=== PATIENT | female | born 1960 | race Asian ===

== ENCOUNTER 2023-11-06 20:11 | Emergency (ER) | payer OTHER ==
[~2023-11-06] VITALS: Ht 157.5 cm; Wt 49.9 kg
[~2023-11-06 20:11] MED LIST: ALOG1TAB6 PO; ATOR40TA PO; CHOL200072 PO; LUTE1CAP5 PO; METF-1274 PO; METO-485 PO; [UNRECOGNIZED DRUG - CODE] PO
[2023-11-06 20:24] VITALS: BP 122/75; PULSE 110; RESP 20; TEMP 97.8; O2SAT 95
[2023-11-06 21:10] LABS: BASOPHILS # (AUTO) 0.1 K/uL (0.00-0.22); EOSINOPHILS # (AUTO) 0.1 K/uL (0-0.4); EOSINOPHILS % (AUTO) 1.5 % (0.0-4.0); HEMATOCRIT 35.9 % (36-48); HEMOGLOBIN 11.9 g/dL (12.0-16.0); LYMPHOCYTES % (AUTO) 10.5 % (20.5-51.1); MEAN CORPUSCULAR HEMOGLOBIN 30 pg (27-31); MEAN CORPUSCULAR HGB CONC 33 g/dL (33-37); MEAN CORPUSCULAR VOLUME 90.7 fL (80-94); MONOCYTES # (AUTO) 0.8 K/uL (0.8-1.0); MONOCYTES % (AUTO) 8.4 % (1.7-9.3); NEUTROPHILS # (AUTO) 7.7 K/uL (1.8-7.7); NEUTROPHILS % (AUTO) 78.6 % (42.2-75.2); PLATELET COUNT (AUTO) 296 K/uL (140-450); RED BLOOD CELL COUNT(AUTO) 3.96 MIL/uL (4.20-5.40); RED CELL DISTRIBUTION WIDTH 14.5 % (11.6-13.7); WHITE BLOOD COUNT (AUTO) 9.8 K/uL (4.8-10.8)
[2023-11-06] MEDS: KETOROLAC 30 MG/ML VIAL IM ONE (21:11)
[2023-11-06 21:35] LABS: ANION GAP 11.3 (8-16); CALCIUM 9.2 mg/dL (8.5-10.1); CARBON DIOXIDE 28.5 mmol/L (21-32); CREATININE 1.3 mg/dL (0.6-1.3); POTASSIUM 3.8 mmol/L (3.5-5.1)
[2023-11-06 21:50] VITALS: PULSE 98; RESP 18; O2SAT 98
[2023-11-06 21:56] VITALS: O2SAT 100
[2023-11-06] MEDS: ALBUTEROL SULFATE/IPRATROPIU 3 ML SOL IH ONE (21:56)
[2023-11-07] MEDS ORDERED: IBUP-2213 PO (00:29)
[2023-11-07 00:54] VITALS: BP 101/57; PULSE 87; RESP 18; TEMP 98.1; O2SAT 97
== END 2023-11-07 00:54 | disposition home or self-care (01) ==
LOC: MED 20:11
DX: R07.89 Other chest pain (principal); R06.02 Shortness of breath; E11.9 Type 2 diabetes mellitus without complications; F03.90 Unspecified dementia, unspecified severity, without behavioral disturbance, psychotic disturbance, mood disturbance, and anxiety; F17.200 Nicotine dependence, unspecified, uncomplicated; Z71.6 Tobacco abuse counseling; Z79.899 Other long term (current) drug therapy; Z90.710 Acquired absence of both cervix and uterus; W01.198A Fall on same level from slipping, tripping and stumbling with subsequent striking against other object, initial encounter; Y92.89 Other specified places as the place of occurrence of the external cause; Y93.89 Activity, other specified; Y99.8 Other external cause status
CPT/HCPCS: 36415; 71046; 80048; 83880; 84484; 85025; 93005; 94640; 96372; 99285; J1885